=== PATIENT | male | born 1995 ===

== ENCOUNTER 2017-02-23 14:42 | Outpatient (CLI) | payer OTHER | END 2017-02-23 15:13 | disposition home or self-care (01) | LOC: LAB 14:42 | DX: J11.1 Influenza due to unidentified influenza virus with other respiratory manifestations (principal) ==

== ENCOUNTER 2018-12-21 11:25 | Outpatient (CLI) | payer OTHER | END 2018-12-21 15:00 | disposition home or self-care (01) | LOC: LAB 11:25 | DX: E78.1 Pure hyperglyceridemia (principal); E11.9 Type 2 diabetes mellitus without complications; E03.8 Other specified hypothyroidism ==

== ENCOUNTER 2019-04-07 10:34 | Outpatient (CLI) | payer OTHER | END 2019-04-07 10:40 | disposition home or self-care (01) | LOC: LAB 10:34 | DX: R53.81 Other malaise (principal) ==

== ENCOUNTER → 2019-05-20 09:26 | Outpatient (CLI) | payer OTHER | END | disposition home or self-care (01) | LOC: LAB 09:26 | DX: R53.81 Other malaise (principal) ==

== ENCOUNTER 2020-08-29 08:20 | Outpatient (CLI) | payer OTHER | END 2020-08-29 16:26 | disposition home or self-care (01) | LOC: LAB 08:20 | PROVIDERS: ATTEND Surgery | DX: M79.671 Pain in right foot (principal) ==

== ENCOUNTER 2021-01-01 16:18 | Outpatient (CLI) | payer OTHER | END 2021-01-01 16:24 | disposition home or self-care (01) | LOC: LAB 16:18 | PROVIDERS: ATTEND Surgery | DX: J02.8 Acute pharyngitis due to other specified organisms (principal); R53.81 Other malaise ==

== ENCOUNTER 2021-10-21 14:01 | Outpatient (CLI) | payer OTHER | END 2021-10-21 14:09 | disposition home or self-care (01) | LOC: LAB 14:01 | PROVIDERS: ATTEND General Practice | DX: R50.9 Fever, unspecified (principal) ==

== ENCOUNTER 2022-06-18 09:26 | Emergency (ER) | payer OTHER ==
[~2022-06-18] VITALS: Ht 188 cm; Wt 81.6 kg
[2022-06-18] MEDS ORDERED: METRONIDAZOLE500 MG PO (13:29)
== END 2022-06-18 14:41 | disposition home or self-care (01) ==
LOC: ER 09:26
DX: K52.89 Other specified noninfective gastroenteritis and colitis (principal); R11.2 Nausea with vomiting, unspecified; R19.7 Diarrhea, unspecified

== ENCOUNTER 2023-04-08 10:50 | Outpatient (CLI) | payer OTHER ==
[~2023-04-08 10:50] MED LIST: METRONIDAZOLE500 MG PO
[2023-04-08 11:46] LABS: HEMATOCRIT 43.8 % (39.0-48.0); HEMOGLOBIN 14.8 g/dL (13-16.00); MEAN CELL VOLUME 93.3 fL (80.0-100.00); MEAN CORPUSCULAR HEMOGLOBIN 31.4 pg (27.00-32.0); MEAN CORPUSCULAR HGB CONC 33.7 g/dl (32.0-36.0); PLATELET COUNT 251 K/uL (150-450); RED BLOOD COUNT 4.69 M/uL (4.00-6.00); RED CELL DISTRIBUTION WIDTH 13.5 % (11.5-14.5)
[2023-04-08 11:48] LABS: URINE APPEARANCE Clear; URINE BILIRRUBIN Negative (NEGATIVE); URINE BLOOD Negative; URINE COLOR Yellow; URINE GLUCOSE Negative (NEGATIVE); URINE LEUKOCYTE Negative; URINE NITRATE Negative; URINE PROTEIN Negative (NEGATIVE)
[2023-04-08 11:53] LABS: URINE RBC 2.2 uL (0.0-20.8)
[2023-04-08 11:55] LABS: URINE BACTERIA 1.2 uL (0.0-1933); URINE EPITHELIAL CELLS 1.2 uL (0.0-38.8)
[2023-04-08 12:35] LABS: ALBUMIN 4.1 gm/dL (3.4-5.0); BILIRUBIN TOTAL 1.2 mg/dL (0.3-1.2); CALCIUM 9.3 mg/dL (8.5-10.1); CREATININE SERUM 0.96 mg/dL (0.70-1.30); GFR 92.6; GLOBULINA 3.3 G/DL (2.4-3.5); POTASSIUM 4.14 mEq/L (3.5-5.1); T4 TOTAL 8.8 UG/DL (4.5-12.1); TOTAL PROTEIN 7.4 gm/dL (6.4-8.2)
== END 2023-04-08 10:51 | disposition home or self-care (01) ==
LOC: LAB 10:50
PROVIDERS: ATTEND Surgery
DX: R53.81 Other malaise (principal)